=== PATIENT | female | born 1970 | race African-American/Black ===

== ENCOUNTER 2019-06-13 05:00 | Observation (INO) | payer SELFPAY ==
[2019-06-13 05:30] LABS: Absolute Lymphocytes (CBC) 2.7 K/uL (0.7-4.9); Basophils % 1.3 % (0-1.3); Hematocrit 34.3 % (36.0-45.0); Lymphocytes % 45.5 % (15.3-44.8); MPV 8.5 fL (7.6-11.3); RBC Red Blood Cell Count 3.52 M/uL (3.86-4.86)
[2019-06-13] MEDS ORDERED: ONDANSETRON 4 MG/2 ML VIAL ONE (05:32)
[2019-06-13] MEDS ORDERED: MORPHINE 4 MG/ML SYR ONE ×3 (05:32→18:06)
[2019-06-13 05:40] LABS: Protime INR 1.1
[2019-06-13 06:07] LABS: ALT/SGPT 28 U/L (12-78); AST/SGOT 26 U/L (15-37); Albumin 3.2 g/dL (3.4-5.0); Alkaline Phosphatase 76 U/L (45-117); BUN Blood Urea Nitrogen 5 mg/dL (7-18); Bicarbonate 24 mmol/L (21-32); Bilirubin Direct 0.1 mg/dL (0-0.2); Bilirubin Total 0.4 mg/dL (0.2-1.0); Glucose Level 87 mg/dL (74-106); Magnesium 1.6 mg/dL (1.8-2.4); NT PRO-BNP 31 pg/mL (<125); Potassium 3.1 mmol/L (3.5-5.1); Protein, Total 7.9 g/dL (6.4-8.2); Sodium Level 138 mmol/L (136-145); Troponin (Emerg Dept Use Only) < 0.02 ng/mL (0.0-0.045)
--- NOTE | 2019-06-13 06:15 | EDPHYS ---
Physician Documentation [facility] Name: Liza Arellano Age: 49 yrs Sex: Female : 1970 Arrival Date: 06/13/2019 Time: 05:01 Bed 7 Private MD: ED Physician Sarath Colon HPI: 06/13 05:26 This 49 yrs old Black Female presents to ER via EMS with complaints of Chest Pain. pkl 05:26 The patient or guardian reports chest pain that is located primarily in the substernal pkl area. Onset: just prior to arrival, 1 hour(s) ago. The pain does not radiate. Associated signs and symptoms: Pertinent positives: diaphoresis. The chest pain is described as a pressure. 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 - Social history:: Smoking status: unknown. - Ebola Screening: : Patient negative for fever greater than or equal to 101.5 degrees Fahrenheit, and additional compatible Ebola Virus Disease symptoms. ROS: 05:26 Eyes: Negative for injury, pain, redness, and discharge, ENT: Negative for injury, pkl pain, and discharge, Neck: Negative for injury, pain, and swelling. 05:26 Cardiovascular: Positive for chest pain. 05:26 Respiratory: Negative for cough, shortness of breath. 05:26 Abdomen/GI: Negative for abdominal pain, nausea, vomiting, and diarrhea. 05:26 Back: Negative for acute changes. 05:26 : Negative for urinary symptoms. 05:26 MS/extremity: Negative for acute changes. 05:26 Skin: Positive for diaphoresis. 05:26 Neuro: Negative for altered mental status, loss of consciousness. Exam: 05:26 Head/Face: Normocephalic, atraumatic. Eyes: Pupils equal round and reactive to light, pkl extra-ocular motions intact. Lids and lashes normal. Conjunctiva and sclera are non-icteric and not injected. Cornea within normal limits. Periorbital areas with no swelling, redness, or edema. ENT: Nares patent. No nasal discharge, no septal abnormalities noted. Tympanic membranes are normal and external auditory canals are clear. Oropharynx with no redness, swelling, or masses, exudates, or evidence of obstruction, uvula midline. Mucous membranes moist. Neck: Trachea midline, no thyromegaly or masses palpated, and no cervical lymphadenopathy. Supple, full range of motion without nuchal rigidity, or vertebral point tenderness. No Meningismus. Chest/axilla: Normal chest wall appearance and motion. Nontender with no deformity. No lesions are appreciated. Cardiovascular: Regular rate and rhythm with a normal S1 and S2. No gallops, murmurs, or rubs. Normal PMI, no JVD. No pulse deficits. Respiratory: Lungs have equal breath sounds bilaterally, clear to auscultation and percussion. No rales, rhonchi or wheezes noted. No increased work of breathing, no retractions or nasal flaring. Abdomen/GI: Soft, non-tender, with normal bowel sounds. No distension or tympany. No guarding or rebound. No evidence of tenderness throughout. Back: No spinal tenderness. No costovertebral tenderness. Full range of motion. Skin: Warm, dry with normal turgor. Normal color with no rashes, no lesions, and no evidence of cellulitis. MS/ Extremity: Pulses equal, no cyanosis. Neurovascular intact. Full, normal range of motion. Neuro: Awake and alert, GCS 15, oriented to person, place, time, and situation. Cranial nerves II-XII grossly intact. Motor strength 5/5 in all extremities. Sensory grossly intact. Cerebellar exam normal. Normal gait. Vital Signs: 05:10 BP 174 / 86; Pulse 85; Resp 19 S; Temp 98.5(O); Pulse Ox 100% on R/A; Weight 70.31 kg jd3 (R); Height 5 ft. 3 in. (160.02 cm) (R); Pain 6/10; 06:51 BP 159 / 88; Pulse 89; Resp 17 S; Pulse Ox 100% on R/A; Pain 5/10; jd3 05:10 Body Mass Index 27.46 (70.31 kg, 160.02 cm) jd3 MDM: 05:17 Patient medically screened. pkl 06:13 Data reviewed: vital signs, nurses notes, lab test result(s), EKG, radiologic studies, pkl plain films. 06/13 05:15 Order name: Basic Metabolic Panel; Complete Time: 06:08 [facility] 06/13 05:15 Order name: CBC with Diff; Complete Time: 05:55 [facility] 06/13 05:15 Order name: LFT's; Complete Time: 06:08 [facility] 06/13 05:15 Order name: Magnesium; Complete Time: 06:08 [facility] 06/13 05:15 Order name: NT PRO-BNP; Complete Time: 06:08 [facility] 06/13 05:15 Order name: PT-INR; Complete Time: 05:55 [facility] 06/13 05:15 Order name: Troponin (emerg Dept Use Only); Complete Time: 06:08 [facility] 06/13 05:15 Order name: XRAY Chest (1 view) [facility] 06/13 06:47 Order name: Lipid Profile [facility] 06/13 06:47 Order name: Troponin I [facility] 06/13 06:47 Order name: Troponin I [facility] 06/13 05:15 Order name: EKG; Complete Time: 05:17 [facility] 06/13 05:15 Order name: Cardiac monitoring; Complete Time: 05:10 [facility] 06/13 05:15 Order name: EKG - Nurse/Tech; Complete Time: 05:10 [facility] 06/13 05:15 Order name: IV Saline Lock; Complete Time: 05:11 [facility] 06/13 05:15 Order name: Labs collected and sent; Complete Time: 05:11 [facility] 06/13 05:15 Order name: O2 Per Protocol; Complete Time: 05:23 [facility] 06/13 05:15 Order name: O2 Sat Monitoring; Complete Time: 05:23 [facility] 06/13 06:47 Order name: CONS Physician Consult [facility] 06/13 06:47 Order name: Heart Healthy [facility] 06/13 06:47 Order name: EKG Electrocardiogram [facility] 06/13 06:47 Order name: EKG Electrocardiogram [facility] Administered Medications: 05:25 CANCELLED (Duplicate Order): morphine 2 mg IVP once; (PAIN>8) RASS on ADMN: Combtv4, pkl Very Agttd3, Agttd2, Rstlss1, AlertClm0, Drwsy-1, LtSdtn-2, ModSdtn-3, DpSdtn-4, UnArsble-5 x2 05:26 CANCELLED (Duplicate Order): Zofran 4 mg IVP once; over 2 minutes pkl 05:35 Drug: Zofran 4 mg Route: IVP; Site: left antecubital; jd3 06:30 Follow up: Response: No adverse reaction jd3 05:36 Drug: morphine 2 mg Route: IVP; Site: left antecubital; jd3 06:30 Follow up: Response: No adverse reaction; RASS: Alert and Calm (0) jd3 06:56 Drug: Magnesium Sulfate 1 grams Route: IVPB; Infused Over: 1 hrs; Site: left jd3 antecubital; 08:00 Follow up: Response: No adverse reaction; IV Status: Completed infusion; IV Intake: hb 100ml Disposition: 06/13/19 06:14 Hospitalization ordered by Billy Dean for Observation. Preliminary diagnosis is Chest pain. - Bed requested for [facility] ER HOLD. - Status is Observation. jd3 - Condition is Stable. - Problem is new. - Symptoms have improved. UTI on Admission? No Signatures: Dispatcher [employer] EDMS Sarath Colon MD MD pkl Davies, Jonathon, RN RN jIda Henderson Heather RN hb Corrections: (The following items were deleted from the chart) 05:25 05:24 morphine 2 mg IVP once; (PAIN>8) RASS on ADMN: Combtv4, Very Agttd3, Agttd2, pkl Rstlss1, AlertClm0, Drwsy-1, LtSdtn-2, ModSdtn-3, DpSdtn-4, UnArsble-5 x2 ordered. pkl 05:26 05:24 Zofran 4 mg IVP once; over 2 minutes ordered. pkl pkl 08:51 06:14 Hospitalization Ordered by Billy Dean MD for Observation. Preliminary eb diagnosis is Chest pain. Bed requested for Telemetry/MedSurg (observation). Status is Observation. Condition is Stable. Problem is new. Symptoms have improved. UTI on Admission? No. pkl 23:10 08:51 06/13/2019 06:14 Hospitalization Ordered by Billy Dean MD for Observation. jd3 Preliminary diagnosis is Chest pain. Bed requested for [facility] ER HOLD. Status is Observation. Condition is Stable. Problem is new. Symptoms have improved. UTI on Admission? No. eb
--- NOTE | 2019-06-13 06:15 | ER ---
Nurse's Notes [facility] Name: Liza Arellano Age: 49 yrs Sex: Female : 1970 Arrival Date: 06/13/2019 Time: 05:01 Bed 7 Private MD: Diagnosis: Chest pain Presentation: 06/13 05:04 Presenting complaint: EMS states: "pt reported chest pain that started at work about jd3 30-45 min ago. she reported 10/10 pain on our arrival. she denies any past medical history other than 2 previous GA's and heart stent placement. we gave 324 mg of aspirin and 1 tab Nitro and she reported her pain coming down to a 6/10. we also started a 20 G IV to the left AC.". Transition of care: patient was not received from another setting of care. Onset of symptoms was June 13, 2019. Risk Assessment: Do you want to hurt yourself or someone else? Patient reports no desire to harm self or others. Initial Sepsis Screen: Does the patient meet any 2 criteria? No. Patient's initial sepsis screen is negative. Does the patient have a suspected source of infection? No. Patient's initial sepsis screen is negative. Care prior to arrival: Medication(s) given: ASA, 325 mg, x 1, Nitro tab X 1. IV initiated. 20 GA, in the left antecubital area. 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 - Social history:: Smoking status: unknown. - Ebola Screening: : Patient negative for fever greater than or equal to 101.5 degrees Fahrenheit, and additional compatible Ebola Virus Disease symptoms. Screenin:54 Abuse screen: Denies threats or abuse. Nutritional screening: No deficits noted. jd3 Tuberculosis screening: No symptoms or risk factors identified. Fall Risk IV access (20 points). Ambulatory Aid- None/Bed Rest/Nurse Assist (0 pts). Gait- Normal/Bed Rest/Wheelchair (0 pts) Mental Status- Oriented to own ability (0 pts). Total Chatterjee Fall Scale indicates No Risk (0-24 pts). Assessment: 05:10 General: Appears in no apparent distress. uncomfortable, Behavior is calm, cooperative, jd3 appropriate for age. Pain: Complains of pain in chest Pain does not radiate. Pain began suddenly. Neuro: Level of Consciousness is awake, alert, obeys commands, Oriented to person, place, time, situation. Cardiovascular: Reports chest pain, Capillary refill < 3 seconds Patient's skin is warm and dry. Rhythm is regular. Respiratory: Airway is patent Respiratory effort is even, unlabored, Respiratory pattern is regular, symmetrical, Denies cough, shortness of breath. GI: No signs and/or symptoms were reported involving the gastrointestinal system. Patient currently denies nausea, vomiting. : No signs and/or symptoms were reported regarding the genitourinary system. EENT: No signs and/or symptoms were reported regarding the EENT system. Derm: Skin is intact, Skin is dry, Skin is normal, Skin temperature is warm. Musculoskeletal: Circulation, motion, and sensation intact. Range of motion: intact in all extremities. 06:30 Reassessment: Patient appears in no apparent distress at this time. Patient and/or jd3 family updated on plan of care and expected duration. Pain level reassessed. Patient is alert, oriented x 3, equal unlabored respirations, skin warm/dry/pink. Patient states feeling better. 07:30 Reassessment: Patient appears in no apparent distress at this time. Admission ordered, hb awaiting room assignment at this time. Vital Signs: 05:10 BP 174 / 86; Pulse 85; Resp 19 S; Temp 98.5(O); Pulse Ox 100% on R/A; Weight 70.31 kg jd3 (R); Height 5 ft. 3 in. (160.02 cm) (R); Pain 6/10; 06:51 BP 159 / 88; Pulse 89; Resp 17 S; Pulse Ox 100% on R/A; Pain 5/10; jd3 05:10 Body Mass Index 27.46 (70.31 kg, 160.02 cm) jd3 ED Course: 05:01 Patient arrived in ED. cl3 05:04 Edmond Muñoz, FAN is Primary Nurse. jd3 05:08 Triage completed. jd3 05:10 Maintain EMS IV. Dressing intact. Good blood return noted. Site clean \\T\\ dry. Gauge \\T\\ rajeev 3 site: 20 G left AC. 05:12 Arm band placed on. EKG completed in triage. Results shown to MD. jd3 05:15 Patient has correct armband on for positive identification. Placed in gown. Bed in low jd3 position. Call light in reach. Side rails up X2. Adult w/ patient. area field manager on. Pulse ox on. NIBP on. 05:17 Sarath Colon MD is Attending Physician. pkl 05:50 XRAY Chest (1 view) In Process Unspecified. EDMS 06:13 Billy Dean MD is Hospitalizing Provider. pkl 06:55 Patient maintains SpO2 saturation greater than 95% on room air. jd3 14:56 Primary Nurse role handed off by Edmond Muñoz RN hb 14:56 Lavern Holden RN is Primary Nurse. hb 19:16 Primary Nurse role handed off by Lavern Holden RN jd3 19:16 Edmond Muñoz RN is Primary Nurse. jd3 23:10 No provider procedures requiring assistance completed. IV discontinued, intact, jd3 bleeding controlled, No redness/swelling at site. Pressure dressing applied. Administered Medications: 05:25 CANCELLED (Duplicate Order): morphine 2 mg IVP once; (PAIN>8) RASS on ADMN: Combtv4, pkl Very Agttd3, Agttd2, Rstlss1, AlertClm0, Drwsy-1, LtSdtn-2, ModSdtn-3, DpSdtn-4, UnArsble-5 x2 05:26 CANCELLED (Duplicate Order): Zofran 4 mg IVP once; over 2 minutes pkl 05:35 Drug: Zofran 4 mg Route: IVP; Site: left antecubital; jd3 06:30 Follow up: Response: No adverse reaction jd3 05:36 Drug: morphine 2 mg Route: IVP; Site: left antecubital; jd3 06:30 Follow up: Response: No adverse reaction; RASS: Alert and Calm (0) jd3 06:56 Drug: Magnesium Sulfate 1 grams Route: IVPB; Infused Over: 1 hrs; Site: left [facility] antecubital; 08:00 Follow up: Response: No adverse reaction; IV Status: Completed infusion; IV Intake: hb 100ml Intake: 08:00 IV: 100ml; Total: 100ml. hb Outcome: 06:14 Decision to Hospitalize by Provider. pkl 23:09 Discharged to home ambulatory. jd3 23:09 Condition: stable 23:09 Discharge instructions given to patient, Instructed on discharge instructions, follow up and referral plans. medication usage, Demonstrated understanding of instructions, follow-up care, medications, Prescriptions given X 4. 23:10 Patient left the ED. jd3 Signatures: Dispatcher [employer] EDMS Sarath Colon MD MD pkl Baxter, Heather RN RN Edmond Cruz RN RN Girish Grant cl3
[2019-06-13] MEDS ORDERED: MAGNESIUM SULFATE 1 gm IVPB 1 GM/100 ML BAG IV ONE (06:31)
[2019-06-13] MEDS ORDERED: ALPRAZOLAM 0.25 MG TABLET PO PRN (06:43)
[2019-06-13] MEDS ORDERED: ACETAMINOPHEN 500 MG TAB PO PRN (06:43)
--- NOTE | 2019-06-13 06:50 | P.HP ---
Certification for Inpatient Patient admitted to: Observation With expected LOS: <2 Midnights Patient will require the following post-hospital care: None Practitioner: I am a practitioner with admitting privileges, knowledge of patient current condition, hospital course, and medical plan of care. Services: Services provided to patient in accordance with Admission requirements found in Title 42 Section 412.3 of the Code of Federal Regulations Patient History Date of Service: 06/13/19 Reason for admission: Chest pain rule out acute coronary syndrome History of Present Illness: Patient is a 49-year-old female came to the hospital with chest discomfort. Pain was mainly in the sternal region. Patient was working at her job when the pain started. She had actually pulled a double that day. She says she has had a heart attack a few years ago. She states it was maybe in 2007 or 2009. She had a Coronary angiogram which was negative at that time. Patient is also a smoker. She states the pain was severe and she became really short of breath. She was not diaphoretic or did not have nausea or vomiting. She will be admitted to the hospital for further workup. Allergies No Known Allergies Allergy (Unverified 07/25/12 03:36) Home Medications: Aspirin Chewable [Aspirin Chewable*] 81 mg PO DAILY #0 tab.chew 07/27/12 Hydrocodone/Acetaminophen [[place] 5-325 Tablet] 1 each PO Q6HP PRN #20 tablet 08/06 Magnesium Oxide [Mag 0X*] 400 mg PO Q12HR #0 tab 07/27/12 Nicotine [Nicoderm*] 21 mg TD DAILY #0 patch.td24 07/27/12 Nitrofuran Macro [Macrobid*] 100 mg PO BID #7 cap 07/27/12 Pantoprazole [Protonix Tab*] 40 mg PO DAILYAC #0 tab 07/27/12 - Past Medical/Surgical History -: Coronary artery disease -: Gastroesophageal reflux disease Past Surgical History: Patient denies surgical history - Social History Smoking Status: Current every day smoker Alcohol use: Yes CD- Drugs: No Caffeine use: Yes Review of Systems 10-point ROS is otherwise unremarkable Physical Examination - Vital Signs Temperature: 98 F Blood Pressure: 140/80 Pulse: 80 Respirations: 18 Pulse Ox (%): 96 - Physical Exam General: Alert, In no apparent distress, Oriented x3 HEENT: Atraumatic, PERRLA, Mucous membr. moist/pink, EOMI, Sclerae nonicteric Neck: Supple, 2+ carotid pulse no bruit, No LAD, Without JVD or thyroid abnormality Respiratory: Clear to auscultation bilaterally, Normal air movement Cardiovascular: Regular rate/rhythm, Normal S1 S2 Gastrointestinal: Normal bowel sounds, Soft and benign, Non-distended, No tenderness Musculoskeletal: No clubbing, No swelling, No tenderness Integumentary: No rashes Neurological: Normal gait, Normal speech, Normal strength at 5/5 x4 extr, Normal tone, Sensation intact, Cranial nerves 3-12 intact, Normal affect Lymphatics: No axilla or inguinal lymphadenopathy - Studies Laboratory Data (last 24 hrs) 06/13/19 05:18: PT 12.9 H, INR 1.10 06/13/19 05:18: WBC 6.0, Hgb 11.7 L, Hct 34.3 L, Plt Count 262 06/13/19 05:18: Sodium 138, Potassium 3.1 L, BUN 5 L, Creatinine 0.65, Glucose 87, Magnesium 1.6 L, Total Bilirubin 0.4, AST 26, ALT 28, Alkaline Phosphatase 76 Assessment & Plan - Problems (Diagnosis) (1) Chest pain, rule out acute myocardial infarction Current Visit: Yes Status: Acute (2) Coronary artery disease Current Visit: Yes Status: Acute (3) Tobacco abuse Current Visit: Yes Status: Acute - Plan 1. Serial troponins and EKG 2. Cardiology consultation 3. Outpatient Echocardiogram and stress test if cardiology is agreeable 4. Anti-platelet therapy, anti coagulation, beta-ankush, statin, and O2 as needed 5. IV morphine for pain 6. Nitro p.r.n. Discharge Plan: Home Plan to discharge in: 24 Hours - Advance Directives Does patient have a Living Will: No Does patient have a Durable POA for Healthcare: No - Code Status/Comfort Care Code Status Assessed: Yes Code Status: Full Code Critical Care: No Time Spent Managing PTS Care (In Minutes): 45
--- NOTE | 2019-06-13 07:30 | RAD REPORT ---
EXAM DESCRIPTION: Jac Single View06/13/2019 5:50 am CLINICAL HISTORY: Chest pain COMPARISON: 2012 FINDINGS: Lungs are hyperaerated The lungs appear clear of acute infiltrate. The heart is normal size IMPRESSION: No acute abnormalities displayed
[2019-06-13 08:29] VITALS: BMI 27.4
[2019-06-13] MEDS: METOPROLOL TAR 50 MG TAB PO SCH ×2 (09:00→21:00)
[2019-06-13] MEDS ORDERED: ASPIRIN EC 81 MG TAB PO SCH (09:00)
[2019-06-13] MEDS ORDERED: ENOXAPARIN 40 MG/0.4 ML SQ SCH (09:00)
[2019-06-13] MEDS ORDERED: ENOXAPARIN 40 MG/0.4 ML SQ ONE (09:54)
[2019-06-13] MEDS ORDERED: ASPIRIN EC 81 MG TAB PO ONE (09:54)
[2019-06-13] MEDS ORDERED: METOPROLOL TAR 25 MG TAB ONE ×2 (09:54→21:19)
[2019-06-13] MEDS: MORPHINE 4 MG/ML SYR IV PRN ×2 (09:57→18:05)
[2019-06-13] MEDS ORDERED: INFLUENZA VACCINE (for 3y+) 0.5 ML DOSE IMVAC ONE ×2 (11:00→21:26)
[2019-06-13 16:08] VITALS: TEMP 98
[2019-06-13 21:24] VITALS: BP 134/75
[2019-06-13 23:28] VITALS: O2SAT 100
--- NOTE | 2019-06-13 23:30 | P.DS ---
Discharge Date: 06/13/19 Disposition: ROUTINE DISCHARGE Discharge Condition: GOOD Reason for Admission: Chest pain rule out acute coronary syndrome - Problems (1) Chest pain, rule out acute myocardial infarction Status: Acute (2) Coronary artery disease Status: Acute (3) Tobacco abuse Status: Acute Brief History of Present Illness: Patient is a 49-year-old female came to the hospital with chest discomfort. Pain was mainly in the sternal region. Patient was working at her job when the pain started. She had actually pulled a double that day. She says she has had a heart attack a few years ago. She states it was maybe in 2007 or 2009. She had a Coronary angiogram which was negative at that time. Patient is also a smoker. She states the pain was severe and she became really short of breath. She was not diaphoretic or did not have nausea or vomiting. She will be admitted to the hospital for further workup. Hospital Course: Patient did well during hospital stay. At this time patient is stable for discharge home. Patient's serial troponins were negative. EKG had no abnormalities. Patient is clinically doing well with no worrisome abnormalities. Patient is stable for discharge. Vital Signs/Physical Exam: Temp Pulse Resp BP Pulse Ox 98.0 F 66 16 134/75 97 06/13/19 20:00 06/13/19 21:00 06/13/19 20:00 06/13/19 21:00 06/13/19 20:00 General: Alert, In no apparent distress, Oriented x3 Laboratory Data at Discharge: WBC 6.0 K/uL (4.3-10.9) 06/13/19 05:18 Hgb 11.7 g/dL (12.0-15.0) L 06/13/19 05:18 Hct 34.3 % (36.0-45.0) L 06/13/19 05:18 Plt Count 262 K/uL (152-406) 06/13/19 05:18 PT 12.9 SECONDS (9.5-12.5) H 06/13/19 05:18 INR 1.10 06/13/19 05:18 Sodium 138 mmol/L (136-145) 06/13/19 05:18 Potassium 3.1 mmol/L (3.5-5.1) L 06/13/19 05:18 BUN 5 mg/dL (7-18) L 06/13/19 05:18 Creatinine 0.65 mg/dL (0.55-1.3) 06/13/19 05:18 Glucose 87 mg/dL (74-106) 06/13/19 05:18 Magnesium 1.6 mg/dL (1.8-2.4) L 06/13/19 05:18 Total Bilirubin 0.4 mg/dL (0.2-1.0) 06/13/19 05:18 AST 26 U/L (15-37) 06/13/19 05:18 ALT 28 U/L (12-78) 06/13/19 05:18 Alkaline Phosphatase 76 U/L (45-117) 06/13/19 05:18 Troponin I < 0.02 ng/mL (0.0-0.045) 06/13/19 20:09 Triglycerides 162 mg/dL (<150) H 06/13/19 05:18 Cholesterol 192 mg/dL (<200) 06/13/19 05:18 HDL Cholesterol 93 mg/dL (40-60) H 06/13/19 05:18 Cholesterol/HDL Ratio 2.06 06/13/19 05:18 Home Medications: Aspirin Chewable [Aspirin Chewable*] 81 mg PO DAILY #0 tab.chew 07/27/12 Hydrocodone/Acetaminophen [[place] 5-325 Tablet] 1 each PO Q6HP PRN #20 tablet 08/06 Magnesium Oxide [Mag 0X*] 400 mg PO Q12HR #0 tab 07/27/12 Nicotine [Nicoderm*] 21 mg TD DAILY #0 patch.td24 07/27/12 Nitrofuran Macro [Macrobid*] 100 mg PO BID #7 cap 07/27/12 Pantoprazole [Protonix Tab*] 40 mg PO DAILYAC #0 tab 07/27/12 Alprazolam [Xanax] 0.5 mg PO Q12H PRN #20 tablet 06/13/19 Aspirin Chewable [Aspirin Chewable*] 81 mg PO DAILY #30 tab.chew 06/13/19 Codeine/APAP [Tylenol W/Codeine #3 tab] 1 tab PO Q12HP PRN #30 tab 06/13/19 Metoprolol Tartrate [Lopressor*] 25 mg PO BID #60 tab 06/13/19 New Medications: Alprazolam [Xanax] 0.5 mg PO Q12H PRN #20 tablet PRN Reason: Anxiety Aspirin Chewable [Aspirin Chewable*] 81 mg PO DAILY #30 tab.chew Codeine/APAP [Tylenol W/Codeine #3 tab] 1 tab PO Q12HP PRN #30 tab PRN Reason: Pain Metoprolol Tartrate [Lopressor*] 25 mg PO BID #60 tab Patient Discharge Instructions: OK TO DC IV AND DC HOME. FOLLOW-UP WITH PRIMARY CARE PROVIDER IN 1-2 WEEKS. FOLLOW-UP WITH CARDIOLOGY IN 1-2 WEEKS. RETURN TO THE ER IF SYMPTOMS WORSEN. CALL or TEXT DR. ALCANTAR AT [phone] IF ANY QUESTIONS REGARDING HOSPITAL STAY. PLEASE CALL THE FLOOR AT [phone] IF ANY MEDICATION OR NURSING QUESTIONS. Diet: AHA Activity: Fall precautions Time spent managing pt's care (in minutes): 15
--- NOTE | 2019-06-14 14:01 | EKG ---
Test Date: 2019-06-13 Test Time: 05:13:51 [place] Analyst: BHARTI MEASUREMENT RESULTS: Intervals: Rate: 69 [place]: 134 QRSD: 80 QT: 442 QTc: 473 [place]: P: 56 [place]: 134 QRS: 67 T: 26 INTERPRETIVE STATEMENTS: Normal sinus rhythm Normal ECG Compared to ECG 07/26/2012 07:42:58 T-wave abnormality no longer present Electronically Signed On 06-14-19 13:59:13 FISCAL MANAGER by Barron Baldwin
== END 2019-06-13 23:08 | disposition home or self-care (01) ==
LOC: ER 05:00 → ERHOLD 06:54
PROVIDERS: ADMIT Hospitalist; ATTEND Hospitalist
DX: R07.9 Chest pain, unspecified (principal); I25.10 Atherosclerotic heart disease of native coronary artery without angina pectoris; F17.210 Nicotine dependence, cigarettes, uncomplicated; Z79.82 Long term (current) use of aspirin; K21.9 Gastro-esophageal reflux disease without esophagitis; Z23 Encounter for immunization
CPT/HCPCS: 36415; 71045; 80048; 80061; 80076; 83735; 83880; 84484; 85025; 85610; 90471; 93005; 96365; 96375; 99285; G0378; J1650; J2405; J3475; Q2035

== ENCOUNTER 2024-10-11 11:01 | Emergency (ER) | payer SELFPAY ==
--- OUTSIDE RECORDS SUMMARY | 2024-10-11 11:07 | XMS REPORT | Continuity of Care Document ---
Author Name Unknown Address [address] [place] [address] [facility] Address 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 Name Role Phone Ramirez Sutherland Attending Clinician Unavailable Marla Espinosa Attending Clinician Marla Lee Admitting Clinician Unavailable Payers Payer Name Policy Type Policy Number Effective Date Expirati on Date Source [facility] Individual Exchange Benefit Plan [id number] [facility] Problems Condition Name Condition Details Condition Category Status Onset Date Resolution Date Last Treatment Date Treating Clinician Comments Source [id number] Moderate episode of recurrent major depressive disorder Problem [facility] [id number] Essential hypertensi on Problem [facility] [id number] Current smoker Problem [facility] Social History Social Habit Start Date Stop Date Quantity Comments Source History of Tobacco Use [facility] Sex Assigned At [facility] Smoking Status Start Date Stop Date Source Never Smoker [facility] Current Smoker 2024-02-17 00:00:00 [facility] Medications Ordered Medication Name Filled Medication Name Start Date Stop Date Current Medication? Ordering Clinician Indication Dosage Frequency Signature (SIG) Comments Components Source hydrOXYzine HCl 10 MG hydrOXYzine HCl 10 MG 02-16 00:00: 00 No 1{table t_as_ne eded} QD hydrOXYzin e HCl 10 MG buPROPion HCl ER (XL) 150 MG buPROPion HCl ER (XL) 150 MG 02-16 00:00: 00 No 1{table t_in_th e_morni ng} QD buPROPion HCl ER (XL) 150 MG Celecoxib 50 MG Celecoxib 50 MG 02-16 00:00: 00 No 1{capsu le} QD Celecoxib 50 MG Fluocinonid e 0.05 % Fluocinonid e 0.05 % 02-16 00:00: 00 No 1{appli cation} BID Fluocinoni de 0.05 % Ondansetron 4 MG Ondansetron 4 MG 02-16 00:00: 00 No 1{table t_on_ e_tongu e_and_a llow_to _dissol ve} QD Ondansetro n 4 MG amLODIPine Besylate 5 MG amLODIPine Besylate 5 MG No amLODIPine Besylate 5 MG Amoxicillin -Pot Clavulanate 875-125 MG Amoxicillin -Pot Clavulanate 875-125 MG No Amoxicilli n-Pot Clavulanat e 875-125 MG Fluconazole 150 MG Fluconazole 150 MG No Fluconazol e 150 MG Meloxicam 15 MG Meloxicam 15 MG No Meloxicam 15 MG Ibuprofen 800 MG Ibuprofen 800 MG No Ibuprofen 800 MG traZODone HCl 50 MG traZODone HCl 50 MG No traZODone HCl 50 MG Cyclobenzap rine HCl 10 MG Cyclobenzap rine HCl 10 MG No Cyclobenza man HCl 10 MG Clotrimazol e 1 % Clotrimazol e 1 % No Clotrimazo le 1 % predniSONE 20 MG predniSONE 20 MG No predniSONE 20 MG Vital Signs Vital Name Observation Time Observation Value Comments S ource height 2024-02-17 10:00:00 63 [in_i] Commo n [facility] weight 2024-02-17 10:00:00 115.4 [lb_av] Co mmon [facility] temperature 2024-02-17 10:00:00 97.3 [degF] Com mon [facility] bmi 2024-02-17 10:00:00 20.44 kg/m2 Comm on [facility] oximetry 2024-02-17 10:00:00 96 % Commo n [facility] blood pressure systolic 2024-02-17 10:00:00 138 mm[Hg] [facility] blood pressure diastolic 2024-02-17 10:00:00 84 mm[Hg] [facility] Encounters Start Date/Time End Date/Time Encounter Type Admission Type Attending Clinicians Care Facility Care Department Encounter ID Source 2024-04-01 08:06:01 Outpatient Ramirez Sutherland [facility] [id number] [facility] 2024-03-30 07:50:00 Outpatient Ramirez Sutherland [facility] [id number] [facility] 2024-03-20 14:46:00 Outpatient Ramirez Sutherland [facility] [id number] [facility] 2024-02-17 09:36:02 Outpatient Ramirez Sutherland [facility] [id number] [facility] 2024-03-18 00:00:00 2024-03-18 00:00:00 (TEL) [facility] [id number] [facility] 2024-02-17 00:00:00 2024-02-17 00:00:00 OFFICE VISIT NEW PT LEVEL 4 [facility] [id number] [facility] 2023-11-11 08:00:00 2023-11-11 08:00:00 Outpatient Marla Cat [facility] [id number] Results Test Description Test Time Test Comments Results Result Co mments Source TUNDE (ANTI-NUCLEAR AB) WITH REFLEX [id number] 23:15:07* Test Item Value Reference Range Interpretation Comme nts ANTI-NUCLEAR ANTIBODIES (test code = 3506) NEGATIVE NEGATIVE Methodology is I ndirect Immunofluorescent Assay (IFA) with a titering system using [id number] cells (Hep2 cells transfected with SS-A/Ro). TUNDE PATTERN (REPORTED TITER) (test code = 65037) SEE BELOW HOMOGENEOUS (test code = 42737) NEGATIVE TITER NEGATIVE SPECKLED (test code = 940142) NEGATIVE TITER NEGATIVE DENSE FINE SPECKLED (test code = 94304) NEGATIVE TITER NEGATIVE CENTROMERE (test code = 011728) NEGATIVE TITER NEGATIVE COARSE SPECKLED (test code = 354881) NEGATIVE TITER NEGATIVE DISCRETE NUCLEAR DOTS (test code = 294633) NEGATIVE TITER NEGATIVE NUCLEOLAR (test code = 246447) NEGATIVE TITER NEGATIVE NUCLEAR MEMBRANE (test code = 309705) NEGATIVE TITER NEGATIVE CYTO. RETICULAR (CLIFFORD) (test code = 992517) NEGATIVE NEGATIVE COMMENTS (test code = 517614) NONE METHOD (test code = 54404) (NOTE) TESTING PERFORME D BY [employer] IFA PLATFORM.THE METHOD INCLUDES A SCREEN THRESHOLD OF 1:80, DIGITIZED AND COMPUTER ALGORITHM-ASSISTED INTERPRETATION OF TITERS AND DIGITAL PATTERNS, AND HEp-2 CELL LINE SUBSTRATE. ADDITIONAL UNUSUAL PATTERNS WILL BE GIVEN COMMENTS.FOR MORE INFORMATION, SEE [email or web address] CHLAMYDIA, NAAT, [id number] 19:36:13* Test Item Value Reference Range Interpretation Comme nts CHLAMYDIA, NAAT, URINE (test code = 05358) NEGATIVE NEGATIVE Testing is perfo rmed with [employer] BEST 6800/8800 systems usingreal-time polymerase chain reaction (PCR) method. A negative result does not exclude low level infection, specimensampling error, or collection error. GONORRHEA, NAAT, [id number] 19:36:13* Test Item Value Reference Range Interpretation Comme nts GONORRHEA, NAAT, URINE (test code = 05750) NEGATIVE NEGATIVE Testing is perfo rmed with [employer] BEST 6800/8800 systems usingreal-time polymerase chain reaction (PCR) method. A negative result does not exclude low level infection, specimensampling error, or collection error. HEPATITIS PANEL, [id number] 04:40:26* Test Item Value Reference Range Interpretation Comme nts HEPATITIS A TOTAL AB (test code = 2725) NON-REACTIVE NON-REACTIVE HEPATITIS B SURF AG (test code = 2739) NON-REACTIVE NON-REACTIVE HEP B CORE TOTAL AB (test code = 2729) NON-REACTIVE NON-REACTIVE HEPATITIS B SURFACE AB (test code = 2737) NON-REACTIVE NON-REACTIVE HEPATITIS C ANTIBODY (test code = 4675) NON-REACTIVE NON-REACTIVE INTERPRETATION HEPATITIS A: (test code = 2552) (NOTE) Hepatitis A sero logy shows no evidence of past exposure to orcurrent infection with hepatitis A virus; patient not immune tohepatitis A. INTERPRETATION HEPATITIS B: (test code = 78311) (NOTE) Hepatitis B sero logy shows no evidence of past exposure to orcurrent infection with hepatitis B virus. No evidence of hepatitis Bimmunization is identified. INTERPRETATION HEPATITIS C: (test code = 09761) (NOTE) Hepatitis C sero logy shows no evidence of exposure to hepatitisC virus at this time. It can take up to 12 months after exposure tothe hepatitis C virus for antibodies to become detectable in the blood in certain patients. UNLESS OTHERWISE INDICATED, ALL TESTING PERFORMED AT [facility] [address] [place] [address] INFECTION CONTROL MANAGER: POONAM PRATHER M.D. [place] NUMBER [id number] [facility] [place]. [id number] HIV 1/2 4TH GEN, RFLX [id number] 04:40:26* Test Item Value Reference Range Interpretation Comme nts HIV 1/2 4TH GEN, RFLX CONF ( test code = 3514) NON-REACTIVE NON-REACTIVE RPR REFLEX TO T. PALLIDUM - [id number] 03:30:26* Test Item Value Reference Range Interpretation Comme nts RPR (test code = 86121) NON-REACTIVE NON-REACTIVE RPR TITER (test code = 3500) NOT INDIC. TITER NOT INDIC. PROTEIN ELECTROPHORESIS, [id number] 14:57:55* Test Item Value Reference Range Interpretation Comme nts ALBUMIN (test code = 2554) 3.6 G/DL 2.8-4.9 % ALBUMIN (test code = 2562) 46 % GLOBULIN (test code = 2555) 4.3 G/DL 2.0-3.8 H A/G RATIO (test code = 2561) 0.8 RATIO 1.2-1.9 L ALPHA-1 (test code = 2556) 0.5 G/DL 0.2-0.5 % ALPHA-1 (test code = 2563) 6 % ALPHA-2 (test code = 2557) 0.8 G/DL 0.5-1.0 % ALPHA-2 (test code = 2564) 11 % BETA (test code = 2558) 1.2 G/DL 0.5-1.2 % BETA (test code = 2565) 15 % GAMMA (test code = 2559) 1.7 G/DL 0.7-1.5 H % GAMMA (test code = 2566) 22 % PROTEIN, TOTAL (test code = 2229) 7.9 G/DL 6.1-8.3 INTERPRETATION, SPEP: (test code = 2568) (NOTE) POLYCLONAL INCRE ASE IN GAMMA GLOBULINS. NO MONOCLONALPROTEIN SEEN. CONSISTENT WITH INFLAMMATORY ORINFECTIOUS PROCESS. CHRISTIAN RESENDIZ M.D. RHEUMATOID FACTOR, [id number] 05:59:20* Test Item Value Reference Range Interpretation Comme nts RHEUMATOID FACTOR, QUANT (test code = 3502) <10 IU/ML <14 UNLESS OTHERWISE INDICATED, ALL TESTING PERFORMED AT [facility] [address] [place] [address] INFECTION CONTROL MANAGER: POONAM PRATHER M.D. IA NUMBER [id number] [facility] [place]. [id number] COMPREHENSIVE METABOLIC [id number] 04:59:40* Test Item Value Reference Range Interpretation Comme nts GLUCOSE (test code = 2217) 92 MG/DL 70-99 BUN (test code = 2207) 7 MG/DL 6-20 CREATININE (test code = 4) 0.73 MG/DL 0.60-1.30 eGFR (2020 CKD-EPI) (test code = 83825) 100 ML/MIN/1.73 >60 CALC BUN/CREAT (test code = 2235) 10 RATIO 6-28 SODIUM (test code = 2231) 139 MEQ/L 133-146 POTASSIUM (test code = 2228) 4.4 MEQ/L 3.5-5.4 CHLORIDE (test code = 2215) 101 MEQ/L 95-107 CARBON DIOXIDE (test code = 2205) 20 MEQ/L 19-31 CALCIUM (test code = 2209) 9.5 MG/DL 8.5-10.5 PROTEIN, TOTAL (test code = 2228) 7.9 G/DL 6.1-8.3 ALBUMIN (test code = 220) 4.1 G/DL 3.5-5.2 CALC GLOBULIN (test code = 2240) 3.8 G/DL 1.9-3.7 H CALC A/G RATIO (test code = 2233) 1.1 RATIO 1.0-2.6 BILIRUBIN, TOTAL (test code = 2206) 0.3 MG/DL <=1.2 ALKALINE PHOSPHATASE (test code = 2203) 118 U/L 40-130 AST (test code = 221) 20 U/L 9-40 ALT (test code = 2218) 10 U/L 5-40 LIPID [id number] 04:59:40* Test Item Value Reference Range Interpretation Comme nts CHOLESTEROL (test code = 2209) 217 MG/DL <200 H TRIGLYCERIDES (test code = 2231) 112 MG/DL <150 HDL CHOLESTEROL (test code = 2219) 71 MG/DL >39 CALC LDL CHOL (test code = 2236) 124 MG/DL <100 H NOTE: CALCULATED LDL IS BASED ON SWETHA-MORAES METHOD WHICHINCLUDES ADJUSTABLE TRIGLYCERIDE:VLDL CHOLESTEROL RATIO.THIS FACTOR VARIES BY MEASURED TRIGLYCERIDE AND NON-HDLCHOLESTEROL CONCENTRATIONS WITH INCREASED CALCULATED LDL SEENIN HIGHER TRIGLYCERIDE OR LOWER NON-HDL SPECIMENS. FOR MOREINFORMATION, SEE CLIENT ANNOUNCEMENT AT [email or web address] RATIO LDL/HDL (test code = 2237) 1.75 RATIO <3.22 URIC [id number] 04:59:40* Test Item Value Reference Range Interpretation Comme nts URIC ACID (test code = 223) 3.6 MG/DL 2.7-6.1 CCP [id number] 03:42:13* Test Item Value Reference Range Interpretation Comme nts CCP IgG (test code = 64554) 0.5 U/ML <3.0 INTERPRETIVE INFORMATION INTERPRETATION RESULT NEGATIVE <3.0 U/ML POSITIVE >=3.0 U/ML CBC W/AUTO DIFF WITH [id number] 03:30:56* Test Item Value Reference Range Interpretation Comme nts WBC (test code = 1001) 5.4 K/UL 3.5-11.0 RBC (test code = 1002) 4.09 M/UL 3.80-5.40 HEMOGLOBIN (test code = 1003) 14.1 G/DL 11.5-15.5 HEMATOCRIT (test code = 1004) 40.4 % 34.0-45.0 MCV (test code = 1005) 98.8 fL 80.0-99.0 MCH (test code = 1006) 34.5 PG 25.0-33.0 H MCHC (test code = 1007) 34.9 G/DL 31.0-36.0 RDW (test code = 1038) 11.7 % 11.5-15.0 NEUTROPHILS (test code = 1008) 36.6 % LYMPHOCYTES (test code = 1010) 52.6 % MONOCYTES (test code = 1011) 8.0 % EOSINOPHILS (test code = 1012) 2.0 % BASOPHILS (test code = 1013) 0.6 % NUCLEATED RBCS (test code = 1065) 0.0 /100 WBC'S See_Comment [Automated FOCUS RESEARCHa ge] The system which generated this result transmitted reference range: 0.0. The reference range was not used to interpret this result as normal/abnormal. PLATELET COUNT (test code = 1015) 451 K/UL 130-400 H ABSOLUTE NEUTROPHILS (test code = 1066) 1.97 K/UL 1.50-7.50 ABSOLUTE LYMPHOCYTES (test code = 1067) 2.83 K/UL 1.00-4.00 ABSOLUTE MONOCYTES (test code = 1068) 0.43 K/UL 0.20-1.00 ABSOLUTE EOSINOPHILS (test code = 1040) 0.11 K/UL 0.00-0.50 ABSOLUTE BASOPHILS (test code = 1069) 0.03 K/UL 0.00-0.20 ABS NUCLEATED RBCS (test code = 41459) 0.00 K/UL 0.00-0.11 SEDIMENTATION [id number] 02:56:10* Test Item Value Reference Range Interpretation Comme nts SEDIMENTATION RATE (test cod e = 1017) 95 MM/HOUR 0-20 H
[2024-10-11] MEDS ORDERED: ACETAMINOPHEN 325 MG TABLET ONE (12:18)
--- NOTE | 2024-10-11 12:47 | RAD REPORT ---
EXAMINATION: Lumbar Spine 3 Views CLINICAL INDICATION: Female, 54 years old. PAIN TECHNIQUE: AP, lateral, focused lateral lumbosacral views of the lumbar spine were obtained. [id number]. COMPARISON: No prior exam. FINDINGS: ALIGNMENT: Alignment of the lumbar spine is within normal limits. BONES: Vertebral bodies are normal in height. No aggressive osseous lesions. DEGENERATIVE: Disc heights are maintained. SOFT TISSUE: No soft tissue abnormalities. IMPRESSION: No acute lumbar spine abnormality.
--- NOTE | 2024-10-11 12:47 | RAD REPORT ---
EXAMINATION: Hip Right 2 View CLINICAL INDICATION: Female, 54 years old. PAIN RIGHT COMPARISON: No prior exam. FINDINGS: No acute fracture. No malalignment/dislocation. Moderate right hip degenerative changes particularly along the superior joint space. Femoral head spu rring. Heterotopic ossification overlying the lower joint space. Other: n/a . IMPRESSION: No acute osseous abnormality.
--- NOTE | 2024-10-11 12:47 | RAD REPORT ---
EXAMINATION: Shoulder Right 2+ Views CLINICAL INDICATION: Female, 54 years old. PAIN RIGHT COMPARISON: No prior exam. FINDINGS: No acute fracture. No malalignment/dislocation. Mild right glenohumeral and mild to moderate right AC joint degenerative changes with subacromial spu rring. Other: n/a IMPRESSION: No acute osseous abnormality.
--- NOTE | 2024-10-11 12:57 | EDPHYS ---
Physician Documentation [facility] Name: Liza Arellano Age: 54 yrs Sex: Female : 1970 Arrival Date: 10/11/2024 Time: 11:01 Bed IW1 Private MD: ED Physician Emmett Villafana HPI: 10/11 11:19 This 54 yrs old Black Female presents to ER via Ambulatory with complaints of Arm Pain, jh7 Leg Pain. 11:19 54-year-old female with no significant past medical history presents to the ER post jh7 fall. The patient reports that she slipped and fell getting out of bed and landed on her right hip and right shoulder. She also reports some right lower back pain as well. Denies head injury or LOC. Denies weakness, numbness/tingling, or any other symptoms at this time.. Historical: - Allergies: 11:19 No Known Allergies; cm10 - PMHx: 11:19 Myocardial infarction; X 2; cm10 - Immunization history:: Adult Immunizations up to date. - Infectious Disease History:: Denies. - Social history:: Smoking status: Patient reports the use of cigarette tobacco products, smokes one pack cigarettes per day. ROS: 11:19 Constitutional: Per HPI jh7 Exam: 11:19 Constitutional: This is a well developed, well nourished patient who is awake, alert, jh7 and in no acute distress. Head/Face: Normocephalic, atraumatic. Neck: Trachea midline, no thyromegaly or masses palpated, and no cervical lymphadenopathy. Supple, full range of motion without nuchal rigidity, or vertebral point tenderness. No Meningismus. Cardiovascular: Regular rate and rhythm with a normal S1 and S2. No gallops, murmurs, or rubs. Normal PMI, no JVD. No pulse deficits. Respiratory: Lungs have equal breath sounds bilaterally, clear to auscultation and percussion. No rales, rhonchi or wheezes noted. No increased work of breathing, no retractions or nasal flaring. Abdomen/GI: Soft, non-tender, with normal bowel sounds. No distension or tympany. No guarding or rebound. No evidence of tenderness throughout. Back: No spinal tenderness. No costovertebral tenderness. Full range of motion. Skin: Warm, dry with normal turgor. Normal color with no rashes, no lesions, and no evidence of cellulitis. Neuro: Awake and alert, GCS 15, oriented to person, place, time, and situation. Motor strength 5/5 in all extremities. Sensory grossly intact. Antalgic gait. 11:19 Musculoskeletal/extremity: ROM: limited active range of motion due to pain, in the right hip, right shoulder, Circulation is intact in all extremities. Pulses: are normal with no appreciated deficits, Perfusion: the patient is normally perfused throughout, pink, warm, noted to have brisk capillary refill, Perfusion: the extremity is normally perfused throughout, pink, warm, with brisk capillary refill, Sensation intact. Weight bearing: able to fully bear weight, Vital Signs: 11:18 BP 126 / 80; Pulse 108; Resp 19; Temp 97.9(TE); Pulse Ox 96% on R/A; Weight 56.7 kg; cm10 Height 5 ft. 3 in. ; Pain 10/10; 11:18 Body Mass Index 22.14 (56.70 kg, 160.02 cm) cm10 11:18 Pain Scale: Adult cm10 MDM: 11:06 Medical Screening Exam initiated [facility] 13:00 Differential diagnosis: dislocation, closed fracture, contusion, Sprain. Data reviewed: [facility] vital signs, nurses notes, radiologic studies, plain films. I considered the following discharge prescriptions or medication management in the emergency department Medications were administered in the Emergency Department. See MAR. Independent interpretation of the following test(s) in the Emergency Department X-Ray: My interpretation is No fractures noted. Historians other than the Patient: Daughter/Son: Daughter. Counseling: I had a detailed discussion with the patient and/or guardian regarding the historical points, exam findings, and any diagnostic results supporting the discharge/admit diagnosis, to return to the emergency department if symptoms worsen or persist or if there are any questions or concerns that arise at home. Response to treatment: the patient's symptoms have mildly improved after treatment. 10/11 11:22 Order name: XRAY Shoulder RIGHT 2 view; Complete Time: 12:49 [facility] 10/11 11:22 Order name: XRAY Hip RIGHT 2 view; Complete Time: 12:49 [facility] 10/11 11:22 Order name: XRAY Lumbar Spine (3 Views); Complete Time: 12:49 [facility] Administered Medications: 12:22 Drug: Acetaminophen PO 650 mg PO once Route: PO; ll1 13:47 Follow up: Response: No adverse reaction cm10 13:47 Not Given (Patient Refused): [id number] mg IM once cm10 Disposition Summary: 10/11/24 12:56 Discharge Ordered Notes: Location: Home [facility] Problem: new [facility] Symptoms: have improved [facility] Condition: Stable [facility] Diagnosis - Contusion of right hip [facility] - Contusion of lower back and pelvis [facility] - Pain in right shoulder [facility] - Fall on same level, unspecified [facility] Followup: [facility] - With: Private Physician - When: 2 - 3 days - Reason: Recheck today's complaints Discharge Instructions: - Discharge Summary Sheet [facility] - Contusion [facility] - Fall Prevention in the Home, Adult [facility] - How to Use Cold Therapy, Hagz-ga-Ruoa [facility] - Hip Pain [facility] Forms: - Medication Reconciliation Form [facility] - Patient Portal Instructions [facility] - Leadership Thank You Letter [facility] Prescriptions: - Naprosyn 500 mg Oral Tablet - take 1 tablet ORAL route 2 times per day take with food; 30 tablet; Refills: 0, [facility] Product Selection Permitted - Zanaflex 4 mg Oral Tablet - take 1 tablet ORAL route every 8 hours As needed; 20 tablet; Refills: 0, [facility] Product Selection Permitted Signatures: Dispatcher [employer] EDJacinto Crabtree, RN RN ll1 Azalia Faulkner, BRAKE REPAIRER HYDRAULIC BRAKE REPAIRER HYDRAULIC 7 Linda Ragland RN RN cm10 Corrections: (The following items were deleted from the chart) 11:23 11:23 Shoulder Right 2 View+RAD.RAD.BRZ ordered. EDMS EDMS 11:23 11:23 Hip Right 2 View+RAD.RAD.BRZ ordered. EDMS EDMS 11:23 11:23 Lumbar Spine 3 Views+RAD.RAD.BRZ ordered. EDMS EDMS 13:46 11:19 54-year-old female with no significant past medical history presents to the ER [facility] post fall. The patient reports that she slipped and fell getting out of bed and landed on her right hip and right shoulder. She also reports some right lower back pain as well. Denies head injury or LOC.. [facility]
--- NOTE | 2024-10-11 12:57 | ER ---
Nurse's Notes [facility] Name: Liza Arellano Age: 54 yrs Sex: Female : 1970 Arrival Date: 10/11/2024 Time: 11:01 Bed IW1 Private MD: Diagnosis: Contusion of right hip;Contusion of lower back and pelvis;Pain in right shoulder;Fall on same level, unspecified Presentation: 10/11 11:18 Chief complaint: Patient states: Got out of bed this morning and her right leg gave out cm10 and she fell. Pt reports pain to her right shoulder, right hip and her lower back. Coronavirus screen: Client denies travel out of the [place] in the last 14 days. Ebola Screen: Patient denies travel to an Ebola-affected area in the 21 days before illness onset. Initial Sepsis Screen: Does the patient meet any 2 criteria? HR > 90 bpm. Does the patient have a suspected source of infection? No. Patient's initial sepsis screen is negative. Risk Assessment: Do you want to hurt yourself or someone else? Patient reports no desire to harm self or others. Onset of symptoms was October 11, 2024. 11:18 Method Of Arrival: Ambulatory cm10 11:18 Acuity: CIERA 3 cm10 Triage Assessment: 11:20 General: Appears in no apparent distress. uncomfortable, Behavior is calm, cooperative. cm10 Pain: Complains of pain in posterior aspect of right shoulder, right hip and back Pain currently is 10 out of 10 on a pain scale. Quality of pain is described as throbbing. Neuro: No deficits noted. Level of Consciousness is awake, alert, obeys commands, Oriented to person, place, time, situation, Appropriate for age. Respiratory: No deficits noted. Airway is patent Respiratory effort is even, unlabored, Respiratory pattern is regular, symmetrical. Musculoskeletal: Reports pain in back, right arm and right leg. Historical: - Allergies: 11:19 No Known Allergies; cm10 - PMHx: 11:19 Myocardial infarction; X 2; cm10 - Immunization history:: Adult Immunizations up to date. - Infectious Disease History:: Denies. - Social history:: Smoking status: Patient reports the use of cigarette tobacco products, smokes one pack cigarettes per day. Screenin:49 [facility] ED Fall Risk Assessment (Adult) History of falling in the last 3 months, cm10 including since admission Yes- single mechanical fall (1 pt) Confusion or Disorientation No (0 pts) Intoxicated or Sedated No (0 pts) Impaired Gait No (0 pts) Mobility Assist Device Used No (0 pt) Altered Elimination No (0 pt) Score/Fall Risk Level 0 - 2 = Low Risk Oriented to surroundings, Maintained a safe environment, Hourly rounding (assess needs \T\ fall precautionary measures) done. Abuse screen: Denies threats or abuse. Denies injuries from another. Nutritional screening: No deficits noted. Tuberculosis screening: No symptoms or risk factors identified. Assessment: 12:22 Reassessment: No changes from previously documented assessment. Patient and/or family ll1 updated on plan of care and expected duration. Pain level reassessed. 13:30 General: PT STATES THAT SHE DOES NOT WANT TO WAIT FOR THE MEDICATION AND WOULD LIKE TO cm10 LEAVE.. Vital Signs: 11:18 BP 126 / 80; Pulse 108; Resp 19; Temp 97.9(TE); Pulse Ox 96% on R/A; Weight 56.7 kg; cm10 Height 5 ft. 3 in. ; Pain 10/10; 11:18 Body Mass Index 22.14 (56.70 kg, 160.02 cm) cm10 11:18 Pain Scale: Adult cm10 ED Course: 11:05 Patient arrived in ED. al6 11:05 Azalia Faulkner FNP is [facility]. jh7 11:05 Emmett Villafana MD is Attending Physician. jh7 11:19 Triage completed. cm10 11:20 Arm band placed on right wrist. Patient placed in waiting room. cm10 12:44 XRAY Shoulder RIGHT 2 view In Process Unspecified. EDMS 12:44 XRAY Hip RIGHT 2 view In Process Unspecified. EDMS 12:44 XRAY Lumbar Spine (3 Views) In Process Unspecified. EDMS 13:49 Patient has correct armband on for positive identification. Provided Education on: cm10 FOLLOW-UP INSTRUCTIONS. 13:49 No provider procedures requiring assistance completed. Patient did not have IV access cm10 during this emergency room visit. Administered Medications: 12:22 Drug: Acetaminophen PO 650 mg PO once Route: PO; ll1 13:47 Follow up: Response: No adverse reaction cm10 13:47 Not Given (Patient Refused): [id number] mg IM once cm10 Medication: 13:49 VIS not applicable for this client. cm10 Outcome: 12:56 Discharge ordered by MD. malloy 13:49 Discharged to home ambulatory, with family, cm10 13:49 Condition: good 13:49 Discharge instructions given to patient, Instructed on discharge instructions, follow up and referral plans. medication usage, Demonstrated understanding of instructions, follow-up care, medications, Prescriptions given X 2, 13:50 Patient left the ED. cm10 Signatures: Dispatcher [employer] EDMS Jacinto Mark, RN RN ll1 Azalia Faulkner, APARTMENT MANAGER APARTMENT MANAGER [id number] Linda Ragland RN RN cm10 Caroline Sutton6
[2024-10-11 14:13] VITALS: BP 126/80; TEMP 97.9; O2SAT 96
== END 2024-10-11 13:50 | disposition home or self-care (01) ==
LOC: ER 11:01
DX: S70.01XA Contusion of right hip, initial encounter (principal); S30.0XXA Contusion of lower back and pelvis, initial encounter; M25.511 Pain in right shoulder; W06.XXXA Fall from bed, initial encounter; F17.210 Nicotine dependence, cigarettes, uncomplicated
CPT/HCPCS: 72100; 99283